=== PATIENT | female | born 1950 | race Hispanic/Latino ===

== ENCOUNTER 2024-07-05 13:14 | Emergency (ER) | payer MEDICARE ==
[~2024-07-05] VITALS: Ht 152.4 cm; Wt 80.3 kg
[~2024-07-05 13:14] MED LIST: CEFDINIR300 MG PO
[2024-07-05 14:04] VITALS: PULSE 58; RESP 16; TEMP 98.3; O2SAT 98
[2024-07-05] MEDS ORDERED: CLONIDINE1 EACH TP (14:25)
[2024-07-05] MEDS ORDERED: VERAPAMIL HCL360 MG PO (14:25)
[2024-07-05] MEDS ORDERED: ROSUVASTATIN CA20 MG PO (14:25)
[2024-07-05] MEDS ORDERED: VALSARTAN-HCTZ1 EAC3 PO (14:25)
[2024-07-05] MEDS ORDERED: NORVASC5 MG PO (14:26)
== END 2024-07-05 14:35 | disposition home or self-care (01) ==
LOC: ER 14:24
DX: I10 Essential (primary) hypertension (principal); R51.9 Headache, unspecified; E78.5 Hyperlipidemia, unspecified; R94.31 Abnormal electrocardiogram [ECG] [EKG]
CPT/HCPCS: 93005; 99283

== ENCOUNTER 2024-08-13 17:51 | Emergency (ER) | payer MEDICARE ==
[~2024-08-13] VITALS: Ht 152.4 cm; Wt 80.7 kg
[~2024-08-13 17:51] MED LIST changes: +CLONIDINE1 EACH TP; +NORVASC5 MG PO; +ROSUVASTATIN CA20 MG PO; +VALSARTAN-HCTZ1 EAC3 PO; +VERAPAMIL HCL360 MG PO
[2024-08-13 18:01] VITALS: TEMP 98.1
[2024-08-13] MEDS: ASPIRIN 81 MG CHEW TAB PO ONE (18:09)
[2024-08-13 18:43] LABS: BASOPHILS # (AUTO) 0.1 (0.0-0.1); BASOPHILS % 0.7 % (0.0-1.0); EOSINOPHILS # (AUTO) 0.3 (0.0-0.4); EOSINOPHILS % 4.1 % (0.0-6.0); HEMOGLOBIN 12.9 g/dL (12.0-16.0); LYMPHOCYTES # (AUTO) 2.9 (1.0-3.2); LYMPHOCYTES % 35.3 % (18.0-39.1); MEAN CORPUSCULAR HEMOGLOBIN 29.6 pg (28-32); MEAN CORPUSCULAR HGB CONC 33.1 g/dL (31-35); MEAN CORPUSCULAR VOLUME 89.4 fL (81-99); MONOCYTES # (AUTO) 0.6 (0.2-0.8); MONOCYTES % 7.5 % (4.4-11.3); NEUTROPHILS # (AUTO) 4.3 (2.1-6.9); NEUTROPHILS % 52.2 % (38.7-80.0); PLATELET COUNT 284 x10e3/uL (140-360); RED BLOOD COUNT 4.36 x10e6/uL (3.6-5.1); RED CELL DISTRIBUTION WIDTH 13.2 % (11.7-14.4); WHITE BLOOD COUNT 8.22 x10e3/uL (4.8-10.8)
[2024-08-13 18:49] LABS: ALBUMIN 3.6 g/dL (3.5-5.0); ALBUMIN/GLOBULIN RATIO 1.3 (0.8-2.0); ANION GAP 13.8 mmol/L (8-16); BILIRUBIN,TOTAL 0.4 mg/dL (0.2-1.2); CALCIUM 8.9 mg/dL (8.4-10.2); CREATININE, SERUM 1.73 mg/dL (0.57-1.11); POTASSIUM 4.8 mmol/L (3.5-5.1); TOTAL PROTEIN 6.3 g/dL (6.5-8.1)
[2024-08-13 18:55] LABS: TROPONIN I 0.001 ng/mL (0-0.300)
[2024-08-13 19:00] VITALS: PULSE 66; RESP 20
[2024-08-13] MEDS ORDERED: IOPAMIDOL 370 MG/ML 100 ML INFUS..BTL INJ ONE (19:03)
[2024-08-13] MEDS ORDERED: SODIUM CHLORIDE 0.9% 100 ML ONE (19:03)
[2024-08-13] MEDS: SODIUM CHLORIDE 0.9% 1000ML 1,000 ML IV STA (19:26)
[2024-08-13 21:29] VITALS: BP 173/63; PULSE 66; RESP 17; TEMP 98.4; O2SAT 96
== END 2024-08-13 21:10 | disposition home or self-care (01) ==
LOC: ER 17:55
DX: R42 Dizziness and giddiness (principal); I16.0 Hypertensive urgency; E87.1 Hypo-osmolality and hyponatremia; M62.81 Muscle weakness (generalized); I10 Essential (primary) hypertension; E78.5 Hyperlipidemia, unspecified
CPT/HCPCS: 36415; 70496; 70498; 71045; 80053; 82550; 83690; 83880; 84484; 85025; 93005; 99284; J7030; J7050; Q9967